=== PATIENT | male | born 1940 | race Caucasian/White ===

== ENCOUNTER 2018-12-04 12:10 | Outpatient (CLI) | payer MEDICARE | END 2018-12-04 23:59 | disposition home or self-care (01) | LOC: CFH 12:10 | PROVIDERS: ATTEND Internal Medicine Cardiovascular Disease | DX: Z01.818 Encounter for other preprocedural examination (principal); I48.91 Unspecified atrial fibrillation; S22.009A Unspecified fracture of unspecified thoracic vertebra, initial encounter for closed fracture; X58.XXXA Exposure to other specified factors, initial encounter; Y93.89 Activity, other specified; Y92.89 Other specified places as the place of occurrence of the external cause; Y99.8 Other external cause status | CPT/HCPCS: 71046; 75572; Q9967 ==

== ENCOUNTER 2018-12-05 06:47 | Observation (INO) | payer MEDICARE ==
[~2018-12-05] VITALS: Ht 190.5 cm; Wt 100.0 kg
[2018-12-06 00:55] VITALS: BP 104/60
== END 2018-12-06 10:16 | disposition home or self-care (01) ==
LOC: CACL 06:47 → ORIP 11:45 → 5SO 13:10 → DCLOUNGE 12-06 10:09
PROVIDERS: ADMIT Internal Medicine Cardiovascular Disease; ATTEND Internal Medicine Cardiovascular Disease
DX: I48.91 Unspecified atrial fibrillation (principal); I48.92 Unspecified atrial flutter
CPT/HCPCS: 85347; 93306; 93312; 93321; 93325; 93613; 93656; 93657; 93662; C1730; C1732; C1759; C1760; C1766; C1893; C1894; G0378; J0330; J1100; J1644; J2250; J2704; J2720; J3010; J3490

== ENCOUNTER 2020-08-10 10:47 | Day surgery (SDC) | payer MEDICARE ==
[~2020-08-10] VITALS: Ht 190.5 cm; Wt 97.2 kg
[~2020-08-10 10:47] MED LIST: APIX5TAB PO; ATOR40TA78 PO; CALC-699 PO; CHOL500045 PO; CYAN25003 PO; DILT-8 PO; DILT120C48 PO; DILT240C80 PO; ESOM40CA PO; LEVO25TA2 PO; LISI-167 PO; MAGN64TA7 PO; OMEG1CAP23 PO; SOTA80TA18 PO
[2020-08-10] MEDS ORDERED: LIDOCAINE 2%, 20ML ONE (11:07)
== END 2020-08-10 13:09 | disposition home or self-care (01) ==
LOC: CACL 10:47
PROVIDERS: ATTEND Internal Medicine Cardiovascular Disease
DX: I48.91 Unspecified atrial fibrillation (principal); I10 Essential (primary) hypertension; I25.10 Atherosclerotic heart disease of native coronary artery without angina pectoris; E78.5 Hyperlipidemia, unspecified; E03.9 Hypothyroidism, unspecified; Z79.01 Long term (current) use of anticoagulants; Z79.82 Long term (current) use of aspirin; Z79.890 Hormone replacement therapy; Z79.899 Other long term (current) drug therapy
CPT/HCPCS: 33285; C1764